=== PATIENT | male | born 1955 | race Caucasian/White ===

== ENCOUNTER → 2016-06-09 | Outpatient (CLI) | payer OTHER ==
--- NOTE | 2016-06-09 13:12 | Diagnostic Imaging Report ---
PROCEDURE: MRI left upper extremity without contrast. TECHNIQUE: Multiplanar, multisequence non contrast-enhanced MRI of the left elbow was accomplished. INDICATION: Generalized elbow pain. Findings: LIGAMENTS: By non-arthrogram imaging, the medial and lateral ligamentous complexes of the elbow are intact. TENDONS AND MUSCLES: The distal biceps, brachialis and triceps tendons are intact. The origin of the medial common flexor tendons is normal. The origin of the lateral common extensor tendons is intact with heterogeneous thickening indicative of chronic tendinopathy. The musculature of the forearm and distal upper arm is normal in bulk. BONES AND CARTILAGE: No fracture. Articular cartilage of the elbow is preserved. No osteochondral lesion. SOFT TISSUES: No significant elbow joint effusion. No olecranon or bicipitoradial bursitis. The ulnar nerve is normal in configuration without mass effect in the cubital tunnel. Normal fat planes around the median and radial nerves at the level of the elbow. IMPRESSION: 1. No acute ligamentous or myotendinous abnormality about the elbow. 2. Tendinopathy of the common origin of the extensor tendons, compatible with chronic lateral epicondylitis. Dictated by: Dictated on workstation # [id number]
== END ==
LOC: RAD 10:43
PROVIDERS: ATTEND Nurse Practitioner
DX: M77.12 Lateral epicondylitis, left elbow (principal)
CPT/HCPCS: 73221